=== PATIENT | male | born 1970 | race Caucasian/White ===

== ENCOUNTER 2017-09-08 21:11 | Inpatient (IN) ==
[2017-09-08 21:46] LABS: Basophils # 0.1 10*3/uL (0.0-0.2); Basophils % 0.9 % (0.0-0.8); Eosinophils % 0.2 % (0.00-10.9); Hematocrit 43.9 VOL% (42.0-52.0); Hemoglobin 14.9 GM/DL (14.0-18.0); Immature Granulocytes % 0.5 %; Immature Granulocytes Absolute 0.03 #; Lymphocytes % 17.2 % (21.2-54.2); Mean Corpuscular HGB Conc 33.9 GM/DL (32-36); Mean Corpuscular Hemoglobin 26 PG (27-34); Mean Corpuscular Volume 77.2 FL (87-102); Mean Platelet Volume 10.8 FL (9.6-12.0); Monocytes # 0.8 10*3/uL (0.11-0.8); Monocytes % 14.7 % (1.7-12.7); Neutrophils # 3.7 10*3/uL (1.4-7.4); Neutrophils % 66.5 % (38.7-73.9); Platelet Count 208 T/CUMM (130-400); Red Blood Count 5.69 MC/CUMM (3.8-5.5); Red Cell Distribution Width 14.8 % (9.3-17.3); White Blood Count 5.5 T/CUMM (4-12)
[2017-09-08 22:07] LABS: Alanine Aminotransferase 59 U/L (16-61); Alkaline Phosphatase 115 U/L (45-117); Aspartate Amino Transferase 48 U/L (0-37); Blood Urea Nitrogen 19 MG/DL (7-18); Calcium 7.8 MG/DL (8.5-10.1); Glucose 135 MG/DL (74-106); Osmolality,Calculated 282.4 MOS/KG (273-304); Potassium 3.4 MMOL/L (3.5-5.1); Sodium 140 MMOL/L (136-145); Total Protein 6.9 G/DL (6.4-8.3); Troponin I Only < 0.015 NG/ML (0.00-0.045)
[2017-09-08 22:18] LABS: Apearance,Urine Slightly Hazy (Clear); Bilirubin,Urine Negative (Negative); Blood, Urine Negative (Negative); Glucose,Urine (UA) Negative (Negative); Ketones,Urine Negative (Negative); Mucus,Urine Occasional /LPF (Occasional); Nitrite,Urine Negative (Negative); Protein,Urine 30 MG/DL; Urine Color Yellow (Yellow); Urine Specific Gravity 1.013 (1.001-1.035); Urine Urobilinogen < 2.0 EU/DL (0.2-1.0); WBC,Urine <1 /HPF (0-6)
[2017-09-08] MEDS ORDERED: SODIUM CHLORIDE 0.9% 1,000 ML IV STA (22:19)
[2017-09-08 22:34] LABS: Barbiturates Screen,Urine Negative (Negative); Benzodiazepines Screen,Urine Negative (Negative); Cannabinoid Screen,Urine Negative (Negative); Opiate Screen,Urine Positive (Negative); Phencyclidine Screen,Urine Negative (Negative)
[2017-09-09] MEDS ORDERED: ONDANSETRON 4 MG/2 ML VIAL IV PRN (00:39)
[2017-09-09] MEDS: MORPHINE 2 MG/1 ML SYRINGE IV PRN ×4 (00:47→14:16)
[2017-09-09] MEDS ORDERED: ENOXAPARIN 60 MG/0.6 ML SYRINGE SUBCUT SCH (01:30)
[2017-09-09] MEDS: ENOXAPARIN 100 MG/ML SYRINGE SUBCUT SCH ×2 (02:17→17:28)
[2017-09-09] MEDS: SODIUM CHLORIDE 0.9% 1,000 ML IV SCH ×2 (02:17→15:49)
[2017-09-09] MEDS ORDERED: POTASSIUM CHLORIDE 10 MEQ TABLET PO ONE (06:29)
[2017-09-09] MEDS ORDERED: hydroCHLOROthiazide 25 MG TABLET PO SCH (09:00)
[2017-09-09] MEDS: amLODIPine 10 MG TABLET PO SCH (10:47)
[2017-09-09] MEDS: ALLOPURINOL 300 MG TABLET PO SCH (21:09)
[2017-09-09] MEDS: hydrALAZINE 20 MG/1 ML VIAL IV PRN (21:12)
[2017-09-10] MEDS: MORPHINE 2 MG/1 ML SYRINGE IV PRN ×3 (00:57→15:21)
[2017-09-10] MEDS: hydrALAZINE 20 MG/1 ML VIAL IV PRN ×2 (02:52→16:57)
[2017-09-10] MEDS: SODIUM CHLORIDE 0.9% 1,000 ML IV SCH (05:10)
[2017-09-10 09:08] LABS: Calcium 6.2 MG/DL (8.5-10.1); Osmolality,Calculated 282.1 MOS/KG (273-304); Potassium 2.9 MMOL/L (3.5-5.1)
[2017-09-10] MEDS: ENOXAPARIN 100 MG/ML SYRINGE SUBCUT SCH ×2 (09:34→21:42)
[2017-09-10] MEDS: amLODIPine 10 MG TABLET PO SCH (09:34)
[2017-09-10] MEDS: POTASSIUM CHLORIDE 20 MEQ TABLET PO SCH ×4 (11:30→23:57)
[2017-09-10] MEDS: ALLOPURINOL 300 MG TABLET PO SCH (21:42)
[2017-09-11] MEDS: POTASSIUM CHLORIDE 20 MEQ TABLET PO SCH (04:15)
[2017-09-11 06:26] LABS: Calcium 9.2 MG/DL (8.5-10.1); Magnesium 2.2 MG/DL (1.8-2.4); Osmolality,Calculated 278.5 MOS/KG (273-304); Potassium 4.6 MMOL/L (3.5-5.1)
[2017-09-11] MEDS: ENOXAPARIN 100 MG/ML SYRINGE SUBCUT SCH (08:40)
[2017-09-11] MEDS: amLODIPine 10 MG TABLET PO SCH (08:40)
[2017-09-11 08:46] VITALS: BP 124/84
== END 2017-09-11 11:00 | disposition home or self-care (01) | DRG 312 ==
LOC: EDBD → EDUNIT# → N.ED 21:11 → N.EDINP 23:40 → SUATTDRO 23:40 → N.2E 09-09 00:43
PROVIDERS: ADMIT Hospitalist; ATTEND Internal Medicine Cardiovascular Disease